=== PATIENT | male | born 1945 | race Caucasian/White ===

== ENCOUNTER → 2017-06-16 | Outpatient (CLI) | payer MEDICARE, BC ==
[~2017-06-16] MED LIST: AMBIEN 5MG TABLE5 MG PO; AMITRIPTYLINE H75 M1 PO; BACTRIM DS 8001 TAB PO; CELEBREX 200MG200 MG PO; CELEBREX50 MG PO; CYCLOBENZAPRINE10 MG PO; DIOVAN HCT 12.51 TAB PO; DIOVAN/HCT 12.51 TAB PO; FLEXERIL 1010 MG/TAB PO; LORTAB 7.5/5001 TAB PO; NORCO 325 MG-51 TAB PO; OMNICEF 300MG300 MG PO; RELAFEN750 MG PO; ULTRAM 50MG TAB50 MG PO; VIAGRA50 MG PO; [UNRECOGNIZED DRUG - CODE] PO
== END ==
LOC: MHCPAIN 11:07
DX: G89.29 Other chronic pain (principal); M47.22 Other spondylosis with radiculopathy, cervical region; M48.02 Spinal stenosis, cervical region; Z87.891 Personal history of nicotine dependence
CPT/HCPCS: G0463

== ENCOUNTER → 2017-07-03 | Outpatient (CLI) | payer MEDICARE, BC | LOC: MHCPAIN 09:04 | DX: M50.323 Other cervical disc degeneration at C6-C7 level (principal) | CPT/HCPCS: J1100; J2250; J3010; Q9967 ==

== ENCOUNTER → 2017-07-18 | Outpatient (CLI) | payer MEDICARE, BC | LOC: MHCPAIN 09:18 | DX: G89.29 Other chronic pain (principal); M50.123 Cervical disc disorder at C6-C7 level with radiculopathy; R51 Headache; Z87.891 Personal history of nicotine dependence | CPT/HCPCS: G0463 ==

== ENCOUNTER → 2017-08-21 | Outpatient (CLI) | payer MEDICARE, BC | LOC: MHCPAIN 12:01 | DX: M50.321 Other cervical disc degeneration at C4-C5 level (principal) ==

== ENCOUNTER → 2017-08-27 | Outpatient (CLI) | payer MEDICARE, BC | LOC: MHCPAIN 09:16 | DX: G89.29 Other chronic pain (principal); M50.123 Cervical disc disorder at C6-C7 level with radiculopathy; Z87.891 Personal history of nicotine dependence | CPT/HCPCS: G0463 ==

== ENCOUNTER → 2017-09-03 | Outpatient (CLI) | payer MEDICARE, BC | LOC: MHCPAIN 13:18 | DX: M50.322 Other cervical disc degeneration at C5-C6 level (principal) ==

== ENCOUNTER → 2017-09-08 | Outpatient (CLI) | payer MEDICARE, BC | LOC: MHCPAIN 13:34 | DX: G89.29 Other chronic pain (principal); M54.12 Radiculopathy, cervical region; M50.90 Cervical disc disorder, unspecified, unspecified cervical region | CPT/HCPCS: G0463 ==

== ENCOUNTER → 2017-09-18 | Outpatient (CLI) | payer MEDICARE, BC | LOC: MHCPAIN 11:23 | DX: M50.30 Other cervical disc degeneration, unspecified cervical region (principal) | CPT/HCPCS: J1100; J2250; J3010 ==

== ENCOUNTER → 2017-09-25 | Outpatient (CLI) | payer MEDICARE, BC | LOC: MHCPAIN 13:16 | DX: M50.31 Other cervical disc degeneration, high cervical region (principal) | CPT/HCPCS: J1100; J2250; J3010 ==

== ENCOUNTER → 2017-11-11 | Outpatient (CLI) | payer MEDICARE, BC | LOC: MHCPAIN 10:01 | DX: G89.29 Other chronic pain (principal); M50.90 Cervical disc disorder, unspecified, unspecified cervical region; M54.12 Radiculopathy, cervical region | CPT/HCPCS: G0463 ==

== ENCOUNTER → 2017-11-17 | Outpatient (CLI) | payer MEDICARE, BC | LOC: MHCPAIN 13:31 | DX: G24.3 Spasmodic torticollis (principal); G24.9 Dystonia, unspecified | CPT/HCPCS: 64616; J0585 ==

== ENCOUNTER → 2017-12-03 | Outpatient (CLI) | payer MEDICARE, BC | LOC: MHCPAIN 09:26 | DX: G89.29 Other chronic pain (principal); M50.10 Cervical disc disorder with radiculopathy, unspecified cervical region; R51 Headache; Z87.891 Personal history of nicotine dependence | CPT/HCPCS: G0463 ==

== ENCOUNTER → 2017-12-17 | Outpatient (CLI) | payer MEDICARE, BC | LOC: MHCPAIN 09:38 | DX: G89.29 Other chronic pain (principal); M50.90 Cervical disc disorder, unspecified, unspecified cervical region; M54.12 Radiculopathy, cervical region; R51 Headache | CPT/HCPCS: G0463 ==

== ENCOUNTER → 2017-12-31 | Outpatient (CLI) | payer MEDICARE, BC | LOC: MHCPAIN 09:49 | DX: G89.29 Other chronic pain (principal); M50.90 Cervical disc disorder, unspecified, unspecified cervical region; M54.12 Radiculopathy, cervical region; M48.02 Spinal stenosis, cervical region | CPT/HCPCS: G0463 ==

== ENCOUNTER → 2018-02-03 | Outpatient (CLI) | payer MEDICARE, BC | LOC: MHCPAIN 13:59 | DX: G89.29 Other chronic pain (principal); M50.31 Other cervical disc degeneration, high cervical region; M54.12 Radiculopathy, cervical region; M48.02 Spinal stenosis, cervical region | CPT/HCPCS: G0463 ==

== ENCOUNTER → 2018-03-18 | Outpatient (CLI) | payer MEDICARE, BC | LOC: COL.RAD 10:25 | DX: S13.100A Subluxation of unspecified cervical vertebrae, initial encounter (principal); M47.812 Spondylosis without myelopathy or radiculopathy, cervical region; I65.23 Occlusion and stenosis of bilateral carotid arteries; I70.8 Atherosclerosis of other arteries; M50.321 Other cervical disc degeneration at C4-C5 level; M48.02 Spinal stenosis, cervical region; M43.12 Spondylolisthesis, cervical region; J43.9 Emphysema, unspecified; J34.89 Other specified disorders of nose and nasal sinuses | CPT/HCPCS: Q9967 ==

== ENCOUNTER 2018-04-17 13:30 | Outpatient (RCR) | payer MEDICARE, BC | END 2018-06-09 09:15 | disposition home or self-care (01) | LOC: WSPT 13:30 | DX: S13.100D Subluxation of unspecified cervical vertebrae, subsequent encounter (principal); M50.30 Other cervical disc degeneration, unspecified cervical region; Z79.899 Other long term (current) drug therapy; F17.290 Nicotine dependence, other tobacco product, uncomplicated; Z79.891 Long term (current) use of opiate analgesic | CPT/HCPCS: G0283-GP; G8981-GP; G8982-GP; G8983-GP ==

== ENCOUNTER → 2018-06-01 | Outpatient (CLI) | payer MEDICARE, BC | LOC: COL.VAS 12:11 | DX: I35.1 Nonrheumatic aortic (valve) insufficiency (principal); I34.0 Nonrheumatic mitral (valve) insufficiency; R94.39 Abnormal result of other cardiovascular function study; R94.31 Abnormal electrocardiogram [ECG] [EKG] ==

== ENCOUNTER → 2018-06-30 | Outpatient (CLI) | payer MEDICARE, BC | LOC: COL.RAD 11:01 | DX: M46.92 Unspecified inflammatory spondylopathy, cervical region (principal); Z98.1 Arthrodesis status ==

== ENCOUNTER 2018-07-09 10:00 | Outpatient (RCR) | payer MEDICARE, BC | END 2018-09-23 | disposition home or self-care (01) | LOC: MKS.ESL.PT | DX: S13.100D Subluxation of unspecified cervical vertebrae, subsequent encounter (principal) | CPT/HCPCS: G8981-GP; G8982-GP ==

== ENCOUNTER → 2018-10-13 | Outpatient (CLI) | payer MEDICARE, BC | LOC: COL.RAD 07:53 | DX: Z13.6 Encounter for screening for cardiovascular disorders (principal); F17.201 Nicotine dependence, unspecified, in remission ==

== ENCOUNTER 2018-11-27 11:00 | Outpatient (RCR) | payer MEDICARE, BC | END 2018-12-14 | disposition home or self-care (01) | LOC: WSPT | DX: S13.100D Subluxation of unspecified cervical vertebrae, subsequent encounter (principal); Z98.1 Arthrodesis status | CPT/HCPCS: G8981-GP; G8982-GP ==

== ENCOUNTER → 2018-12-02 | Outpatient (CLI) | payer MEDICARE, BC | LOC: COL.RAD 10:44 | DX: M50.30 Other cervical disc degeneration, unspecified cervical region (principal); S13.100D Subluxation of unspecified cervical vertebrae, subsequent encounter; Z98.1 Arthrodesis status ==

== ENCOUNTER → 2018-12-22 | Outpatient (CLI) | payer MEDICARE, BC | LOC: MHCPAIN 14:46 | DX: G89.29 Other chronic pain (principal); M54.81 Occipital neuralgia; R51 Headache; M47.812 Spondylosis without myelopathy or radiculopathy, cervical region | CPT/HCPCS: G0463 ==

== ENCOUNTER → 2018-12-23 | Outpatient (CLI) | payer MEDICARE, BC | LOC: MHCPAIN 07:43 | DX: M79.18 Myalgia, other site (principal) | CPT/HCPCS: J1040 ==

== ENCOUNTER → 2019-01-18 | Outpatient (CLI) | payer MEDICARE, BC | LOC: MHCPAIN 08:55 | DX: G89.29 Other chronic pain (principal); M54.81 Occipital neuralgia; R51 Headache; M47.812 Spondylosis without myelopathy or radiculopathy, cervical region | CPT/HCPCS: G0463 ==

== ENCOUNTER → 2019-02-04 | Outpatient (CLI) | payer MEDICARE, BC | LOC: MHCPAIN 08:24 | DX: M47.812 Spondylosis without myelopathy or radiculopathy, cervical region (principal); M54.12 Radiculopathy, cervical region; R51 Headache ==

== ENCOUNTER → 2019-02-08 | Outpatient (CLI) | payer MEDICARE, BC | LOC: MHCPAIN 08:47 | DX: G89.29 Other chronic pain (principal); M54.81 Occipital neuralgia; R51 Headache; M47.812 Spondylosis without myelopathy or radiculopathy, cervical region | CPT/HCPCS: G0463 ==

== ENCOUNTER → 2019-06-01 | Outpatient (CLI) | payer MEDICARE, BC ==
[~2019-06-01] MED LIST changes: +ANORO IH; +DOXYCYCLINE HY100 MG PO; +FERROUS SU325 MG/TAB PO; +HYZAAR 12.5 MG-1 TAB PO; +MOBIC15 MG PO; +PREDNISONE20 MG PO; +PROTONIX 40MG T40 MG PO; +RESTORIL 1515 MG/CAP PO; +ZANAFLEX2 MG PO
== END ==
LOC: COL.RAD 09:59
DX: M50.30 Other cervical disc degeneration, unspecified cervical region (principal); S13.100D Subluxation of unspecified cervical vertebrae, subsequent encounter; Z98.1 Arthrodesis status